=== PATIENT | male | born 1980 | race Caucasian/White ===

== ENCOUNTER 2021-08-23 17:59 | Emergency (ER) | payer SELFPAY ==
[~2021-08-23] VITALS: Ht 180.3 cm; Wt 77.1 kg
[2021-08-23 18:08] VITALS: BP 138/89
--- NOTE | 2021-08-23 18:14 | PHYS DOC ---
Adult General Chief Complaint Chief Complaint: HAND PROBLEM HPI HPI Patient is a 41-year-old male who presents with right hand pain after punching a wall earlier in the day. Having pain, 4 out of 10, dull and achy in nature. Denies any other injuries. Did not take any medications. Review of Systems Review of Systems Review of systems otherwise unremarkable except noted in HPI Allergies Allergies Allergies Coded Allergies Type Severity Reaction Last Updated Verified No Known Drug Allergies 08/23/21 No Physical Exam Physical Exam Constitutional: Well developed, well nourished, no acute distress, non-toxic appearance. [] Skin: Warm, dry, no erythema, no rash. [] Extremities: Neurovascular exam intact, small abrasions on knuckles, mild t enderness and mild swelling with no change in range of motion second MCP and surrounding area, mild deformity/bump on palmar aspect just proximal to the second MCP Neurologic: Alert and oriented X 3, no focal deficits noted. [] Psychologic: Affect normal, judgement normal, mood normal. [] EKG EKG [] Radiology/Procedures Radiology/Procedures [] Heart Score C/O Chest Pain: No Risk Factors: Risk Factors: DM, Current or recent (<one month) smoker, HTN, HLP, family history of CAD, obesity. Risk Scores: Risk Factors: DM, Current or recent (<one month) smoker, HTN, HLP, family history of CAD, obesity. Course & Med Decision Making Course & Med Decision Making Patient is a 41-year-old male who presents with right hand pain after punching a wall Vital signs not concerning. Physical exam noted above. Given pain medicine. Given ice. Imaging with a distal first metacarpal fracture, displaced and angulated. Cleaned area well with alcohol. Given 10 mils of 2% lidocaine as a digital block and hematoma block. Reduced. Splinted. Discussed all findings with patient. Advised on symptom management at home. Advised to follow-up with primary care as needed. Gave return precautions to the ED. Patient grateful, verbalized understanding and agreed with plan of discharge. [] Dragon Disclaimer Dragon Disclaimer This electronic medical record was generated, in whole or in part, using a voice recognition dictation system. Departure Departure: Impression: Primary Impression: Metacarpal bone fracture Disposition: HOME / SELF CARE / HOMELESS Condition: STABLE Referrals: PCP,ADWOA (PCP) TANJA MASTERS MD Patient Instructions: Hand Fracture, Metacarpals, RICE - Routine Care for Injuries Additional Instructions: Thank you for coming into the emergency department tonight and allowing us to take care of you. Please read the attached information carefully to go over things we discussed. You can continue ice, ibuprofen and Tylenol as needed. Please follow-up with your primary care physician to update on your ED visit and set up a follow-up as needed. Please come back with new or concerning symptoms as discussed. Because of your break, as we discussed you need to see an orthopedic doctor in follow-up. Please call the [facility] orthopedic group first thing in the morning at [phone] to set up a follow-up appointment this week for reevaluation and decision on whether you need a splint, cast or surgery. Please also follow-up with your primary care physician to update on your ED visit. MIGUEL ÁNGEL LUO MD Aug 23, 2021 18:14
[2021-08-23] MEDS: IBUPROFEN 600 MG TABLET. PO ONE (18:18)
[2021-08-23] MEDS: ACETAMINOPHEN 500 MG TABLET PO ONE (18:19)
[2021-08-23] MEDS: LIDOCAINE 2% 20 ML VIAL. IJ ONE (18:31)
--- NOTE | 2021-08-23 18:46 | RAD ---
EXAMINATION: XR HAND_RIGHT 3 VIEWS CLINICAL HISTORY: Punched a wall, right hand pain and swelling TECHNIQUE: XR HAND_RIGHT 3 VIEWS COMPARISON: None FINDINGS/ IMPRESSION: Transverse fracture through the second metacarpal neck with mild comminution, impaction, and moderate apex dorsal angulation. Second metacarpal head appears to maintain articulation with the proximal ph alangeal base. Surrounding soft tissue swelling. Electronically signed by: Remy Guillen DO (08/23/2021 6:43 PM) EB
--- NOTE | 2021-08-23 22:43 | RAD ---
EXAMINATION: XR HAND_RIGHT 3 VIEWS CLINICAL HISTORY: Second metacarpal fracture status post reduction.. TECHNIQUE: XR HAND_RIGHT 3 VIEWS COMPARISON: 08/23/2021 6:16 PM FINDINGS/ IMPRESSION: Improved alignment of the second metacarpal neck fracture status post interval reduction and placemen t of overlying fiberglass splint. Electronically signed by: Remy Guillen DO (08/23/2021 10:40 PM) EB
== END 2021-08-23 22:48 | disposition home or self-care (01) ==
LOC: ER 17:59
DX: S62.330A Displaced fracture of neck of second metacarpal bone, right hand, initial encounter for closed fracture (principal); W22.01XA Walked into wall, initial encounter; Y93.89 Activity, other specified; Y92.89 Other specified places as the place of occurrence of the external cause; Y99.8 Other external cause status
CPT/HCPCS: 26605; 73130; 99284; J2001

== ENCOUNTER 2021-08-24 16:12 | Emergency (ER) | payer SELFPAY ==
[~2021-08-24] VITALS: Ht 180.3 cm; Wt 86.0 kg
--- NOTE | 2021-08-24 18:08 | PHYS DOC ---
Past History Past Surgical History: No Surgical History (ANDRE WALKER APRN) Alcohol Use: Rarely (ANDRE WALKER APRN) General Adult EDM: Chief Complaint: CAST CHECK HPI: HPI: Patient is a 41-year-old male who presents to the emergency department for increased hand pain. Patient was seen in this emergency department yesterday for a hand fracture and his hand was placed in a splint he was given orthopedic follow-up information. Patient reports that he is now having pain to the other side of his hand proximal to his fifth finger and he is concerned about the bruising. Patient denies any decreased range of motion, decreased sensation, shortness of breath, fevers. (ANDRE WALKER APRN) Review of Systems: Review of Systems: Constitutional: See HPI Musculoskeletal: See HPI Integument: See HPI Neurologic: See HPI (ANDRE WALKER APRN) Allergies: Allergies: Allergies Coded Allergies Type Severity Reaction Last Updated Verified No Known Drug Allergies 08/23/21 No (ANDRE WALKER APRN) Physical Exam: PE: Constitutional: Well developed, well nourished, no acute distress, non-toxic appearance. [] HENT: Normocephalic, atraumatic, bilateral external ears normal, oropharynx moist, no oral exudates, nose normal. [] Eyes: PERRL, EOMI, conjunctiva normal, no discharge. [] Neck: Normal range of motion, no stridor Cardiovascular: Normal peripheral perfusion Lungs & Thorax: Normal work of breathing, no tachypnea Abdomen: Soft and flat Skin: Warm, dry, no erythema, no rash. [] Back: Normal range of motion Extremities: No tenderness, no cyanosis, no clubbing, ROM intact, no edema. [] Right hand: Mild swelling noted to dorsal aspect of right hand with ecchymosis, range of motion intact, neuro intact, warm extremities Neurologic: Alert and oriented X 3, normal motor function, normal sensory function, no focal deficits noted. [] Psychologic: Affect normal, judgement normal, mood normal. [] (ANDRE WALKER APRN) Current Patient Data: Vital Signs: Vital Signs Date Time Temp Pulse Resp B/P (MAP) Pulse Ox O2 Delivery O2 Flow Rate FiO2 08/24/21 16:47 98.2 82 16 132/84 (100) 99 Room Air (ANDRE WALKER APRN) EKG: EKG: [] (ANDRE WALKER APRN) Radiology/Procedures: Radiology/Procedures: [] (ANDRE WALKER APRN) Heart Score: C/O Chest Pain: N/A Risk Factors: Risk Factors: DM, Current or recent (<one month) smoker, HTN, HLP, family history of CAD, obesity. Risk Scores: Score 0 - 3: 2.5% MACE over next 6 weeks - Discharge Home Score 4 - 6: 20.3% MACE over next 6 weeks - Admit for Clinical Observation Score 7 - 10: 72.7% MACE over next 6 weeks - Early Invasive Strategies (ANDRE WALKER APRN) Course & Med Decision Making: Course & Med Decision Making Pertinent Labs and Imaging studies reviewed. (See chart for details) Patient presents to the emergency department for increased hand pain and swelling. I removed the splint and patient was noted to have swelling under her splint as well as ecchymosis. The splint was rewrapped and loosened. Patient has range of motion intact and is neurovascularly intact. Patient does not have any severe swelling. Patient given referral information for orthopedic doctor. I offered patient pain management for his hand pain which she refused saying that he is sober. I discussed with patient all findings and diagnostic testing as well as the need to follow-up with PCP for further evaluation and treatment or return to the ER if any new or worsening symptoms. Strict return precautions were also discussed at length. Patient voiced understanding and agreement with the plan. Patient is hemodynamically stable at the time of disposition. (ANDRE WALKER APRN) Dragon Disclaimer: Dragon Disclaimer: This electronic medical record was generated, in whole or in part, using a voice recognition dictation system. (ANDRE WALKER APRN) Attending Co-Sign The patient was seen and interviewed as well as examined at the bedside. The chart was reviewed. The case was discussed. Agree with the plan of care. (RACHEL GELLER DO) Departure Departure: Impression: Primary Impression: Hand pain Qualified Codes: M79.641 - Pain in right hand Disposition: HOME / SELF CARE / HOMELESS Condition: GOOD Referrals: PCP,NO (PCP) TANJA MURILLO II, MD Patient Instructions: Cast or Splint Care Additional Instructions: You are seen in the emergency department today for hand pain and swelling. You are likely to experience mild swelling and pain as well as bruising. Please monitor for any decreased sensation in your fingers, decreased range of motion, wound or cold fingers. If you develop any of these findings you need to return to the emergency department immediately. Otherwise contact the orthopedic doctor tomorrow morning and set up a follow-up appointment. I discussed with patient all findings and diagnostic testing as well as the need to follow-up with PCP for further evaluation and treatment or return to the ER if any new or worsening symptoms. Strict return precautions were also discussed at length. Patient voiced understanding and agreement with the plan. Patient is hemodynamically stable at the time of disposition. ANDRE WALKER APRN Aug 24, 2021 18:08 RACHEL GELLER DO Aug 26, 2021 09:23
[2021-08-24 18:20] VITALS: BP 120/79
== END 2021-08-24 18:22 | disposition home or self-care (01) ==
LOC: ER 16:12
DX: M79.641 Pain in right hand (principal)
CPT/HCPCS: 99281

== ENCOUNTER 2021-09-06 16:12 | Emergency (ER) | payer SELFPAY ==
[~2021-09-06] VITALS: Ht 180.3 cm; Wt 86.0 kg
[2021-09-06] MEDS ORDERED: IV RINGERS SOLUTION,LACTATED 1,000 ML IV ONE ×2 (16:30→18:00)
[2021-09-06] MEDS ORDERED: ONDANSETRON PF 4 MG/2 ML VIAL. IVP ONE (16:30)
[2021-09-06 16:39] LABS: BASO # 0.1 x10^3/uL (0.0-0.2); BASO % 1 % (0-3); EOS # 0.1 x10^3/uL (0.0-0.7); EOS % 1 % (0-3); HEMATOCRIT 44.4 % (39.0-53.0); HEMOGLOBIN 15.3 g/dL (13.0-17.5); LYMPH # 1.6 x10^3/uL (1.0-4.8); LYMPH % 17 % (24-48); MEAN CORPUSCULAR HEMOGLOBIN 32 pg (25-35); MEAN CORPUSCULAR HGB CONC 35 g/dL (31-37); MEAN CORPUSCULAR VOLUME 92 fL (79-100); MONO # 0.7 x10^3/uL (0.0-1.1); MONO % 8 % (0-9); NEUT # 6.8 x10^3uL (1.8-7.7); NEUT % 74 % (31-73); PLATELET COUNT 269 x10^3/uL (140-400); RED BLOOD COUNT 4.82 x10^6/uL (4.30-5.70); WHITE BLOOD COUNT 9.2 x10^3/uL (4.0-11.0)
[2021-09-06 16:42] LABS: CALCIUM 9.6 mg/dL (8.5-10.1); GFR 82.3
[2021-09-06] MEDS ORDERED: PROCHLORPERAZINE 10 MG/2 ML VIAL. IV ONE (16:45)
[2021-09-06 16:47] LABS: ALBUMIN 4.4 g/dL (3.4-5.0); ALBUMIN/GLOBULIN RATIO 1.2 (1.0-1.7); TOTAL BILIRUBIN 0.5 mg/dL (0.2-1.0)
[2021-09-06 19:01] VITALS: BP 112/74
[2021-09-06] MEDS ORDERED: PROC10TA57 PO (19:05)
[2021-09-06] MEDS ORDERED: ONDA4TAB12 PO (19:05)
--- NOTE | 2021-09-06 19:06 | PHYS DOC ---
Past History Past Medical History: No Pertinent History (CARLOS RUSSELL) Past Surgical History: No Surgical History (CARLOS RUSSELL) Alcohol Use: None Drug Use: Marijuana (CARLOS RUSSELL) General Adult EDM: Chief Complaint: NAUSEA/VOMITING/DIARRHEA HPI: HPI: Patient is a 41 year old male who presents with 3-day history of nausea and vomiting. Patient states that on Monday evening, he began to feel nauseated and had a couple episodes of emesis. He says that since that time, he has been unable to take anything by mouth secondary to his nausea and vomiting. Arrival to the ER, he is retching, but does not actually been able to produce emesis. He reports he smokes marijuana regularly. Patient denies fever, chills, generalized weakness, diarrhea, constipation, hematemesis. (CARLOS RUSSELL) Review of Systems: Review of Systems: ROS negative or noncontributory except as mentioned in HPI. (CARLOS RUSSELL) Current Medications: Current Meds: Current Medications Medications (Trade) Dose Ordered Sig/Jason Start Time Stop Time Status Last Admin Dose Admin Lactated Ringer's 1,000 ml @ 1,000 mls/hr 1X ONCE 09/06/21 18:00 09/06/21 18:59 DC 09/06/21 17:54 1,000 MLS/HR Ondansetron HCl (Zofran) 4 mg 1X ONCE 09/06/21 16:30 09/06/21 16:31 DC 09/06/21 16:30 4 MG Prochlorperazine Edisylate (Compazine) 10 mg 1X ONCE 09/06/21 16:45 09/06/21 16:46 DC 09/06/21 16:45 10 MG (CARLOS RUSSELL) Allergies: Allergies: Allergies Coded Allergies Type Severity Reaction Last Updated Verified No Known Drug Allergies 08/23/21 No (CARLOS RUSSELL) Physical Exam: PE: Constitutional: Well developed, well nourished, no acute distress, non-toxic appearance, slightly disheveled, appears fatigued. HENT: Normocephalic, atraumatic, bilateral external ears normal, oropharynx moist, markedly poor dentition, nose normal. Eyes: EOMI, conjunctiva normal, no discharge. Neck: Normal range of motion, no stridor. Skin: Warm, dry, no erythema, no rash. Extremities: No cyanosis, no clubbing, ROM intact, no edema, no obvious deformities. Neurologic: Alert and oriented x4, motor and sensory function grossly intact, no focal deficits noted. Psychiatric: Affect appropriate, fair judgment, mood "sick." (CARLOS RUSSELL) Current Patient Data: Labs: Laboratory Tests Test 09/06/21 16:17 09/06/21 19:10 White Blood Count 9.2 x10^3/uL (4.0-11.0) Red Blood Count 4.82 x10^6/uL (4.30-5.70) Hemoglobin 15.3 g/dL (13.0-17.5) Hematocrit 44.4 % (39.0-53.0) Mean Corpuscular Volume 92 fL (79-100) Mean Corpuscular Hemoglobin 32 pg (25-35) Mean Corpuscular Hemoglobin Concent 35 g/dL (31-37) Red Cell Distribution Width 14.0 % (11.5-14.5) Platelet Count 269 x10^3/uL (140-400) Neutrophils (%) (Auto) 74 % (31-73) Lymphocytes (%) (Auto) 17 % (24-48) Monocytes (%) (Auto) 8 % (0-9) Eosinophils (%) (Auto) 1 % (0-3) Basophils (%) (Auto) 1 % (0-3) Neutrophils # (Auto) 6.8 x10^3uL (1.8-7.7) Lymphocytes # (Auto) 1.6 x10^3/uL (1.0-4.8) Monocytes # (Auto) 0.7 x10^3/uL (0.0-1.1) Eosinophils # (Auto) 0.1 x10^3/uL (0.0-0.7) Basophils # (Auto) 0.1 x10^3/uL (0.0-0.2) Sodium Level 137 mmol/L (136-145) Potassium Level 4.0 mmol/L (3.5-5.1) Chloride Level 100 mmol/L (98-107) Carbon Dioxide Level 24 mmol/L (21-32) Anion Gap 13 (6-14) Blood Urea Nitrogen 12 mg/dL (8-26) Creatinine 1.0 mg/dL (0.7-1.3) Estimated GFR (Cockcroft-Gault) 82.3 BUN/Creatinine Ratio 12 (6-20) Glucose Level 104 mg/dL (70-99) Calcium Level 9.6 mg/dL (8.5-10.1) Total Bilirubin 0.5 mg/dL (0.2-1.0) Aspartate Amino Transf (AST/SGOT) 18 U/L (15-37) Alanine Aminotransferase (ALT/SGPT) 33 U/L (16-63) Alkaline Phosphatase 59 U/L (46-116) Total Protein 8.0 g/dL (6.4-8.2) Albumin 4.4 g/dL (3.4-5.0) Albumin/Globulin Ratio 1.2 (1.0-1.7) Lipase 197 U/L (73-393) Urine Collection Type Unknown Urine Color Sarah Urine Clarity Cloudy Urine pH 7.5 Urine Specific Gillham 1.020 Urine Protein Trace (NEG-TRACE) Urine Glucose (UA) Neg mg/dL (NEG) Urine Ketones (Stick) 15 mg/dL (NEG) Urine Blood Neg (NEG) Urine Nitrite Neg (NEG) Urine Bilirubin Neg (NEG) Urine Urobilinogen Dipstick 0.2 mg/dL (0.2 mg/dL) Urine Leukocyte Esterase Neg (NEG) Urine RBC 0 /HPF (0-2) Urine WBC 0 /HPF (0-4) Urine Squamous Epithelial Cells None /LPF Urine Bacteria Many /HPF (0-FEW) Urine Mucus Marked /LPF Urine Opiates Screen Neg (NEG) Urine Methadone Screen Neg (NEG) Urine Barbiturates Neg (NEG) Urine Phencyclidine Screen Neg (NEG) Urine Amphetamine/Methamphetamine Neg (NEG) Urine Benzodiazepines Screen Neg (NEG) Urine Cocaine Screen Neg (NEG) Urine Cannabinoids Screen Pos (NEG) Urine Ethyl Alcohol Neg (NEG) Vital Signs: Vital Signs Date Time Temp Pulse Resp B/P (MAP) Pulse Ox O2 Delivery O2 Flow Rate FiO2 09/06/21 19:01 61 18 112/74 (87) 100 Room Air 09/06/21 16:16 97.9 (CARLOS RUSSELL) Radiology/Procedures: Radiology/Procedures: [] (CARLOS RUSSELL) Heart Score: C/O Chest Pain: No (CARLOS RUSSELL) Course & Med Decision Making: Course & Med Decision Making Pertinent Labs and Imaging studies reviewed. (See chart for details) Patient is a 41-year-old male who admits to chronic marijuana use who presents with intractable nausea and vomiting. Patient appears to have cannabinoid hyperemesis syndrome. Work-up today will include labs, urinalysis, urine drug screen. Patient provided with IV Zofran and IV fluids. Patient still retching after Zofran administration. Compazine was added IV. Patient seems to be doing much better after Compazine administration, though he reports continuing to feel "queasy." Discussed liquid diet and to advance as tolerated to BRAT and then regular. Patient will be provided with prescriptions for Zofran as well as Compazine. Patient advised to discontinue use of cannabinoids to avoid future episodes. Though patient admits he will not likely stop smoking marijuana, he verbalizes understanding. He and his family member at bedside understand are agreeable to discharge plan. (CARLOS RUSSELL) Course & Med Decision Making Did not see or evaluate patient. Did not discuss patient with ENGINE CLEANER. Generally agree with ENGINE CLEANER's work-up and disposition per note (MIGUEL ÁNGEL LUO MD) Dragon Disclaimer: Dragon Disclaimer: This electronic medical record was generated, in whole or in part, using a voice recognition dictation system. (CARLOS RUSSELL) Departure Departure: Impression: Primary Impression: Cannabinoid hyperemesis syndrome Additional Impression: Nausea & vomiting Qualified Codes: R11.2 - Nausea with vomiting, unspecified Disposition: HOME / SELF CARE / HOMELESS Condition: IMPROVED Referrals: PCP,ADWOA (PCP) Patient Instructions: Nausea and Vomiting, [id number] Additional Instructions: EMERGENCY DEPARTMENT GENERAL DISCHARGE INSTRUCTIONS Thank you for coming to [facility] (ED) today and trusting us with you care. We trust that you had a positive experience in our Emergency Department. If you wish to speak to the department management, you may call the director at [phone]. YOUR FOLLOW UP INSTRUCTIONS ARE FOLLOWS: 1. Follow up with your primary care doctor. If you do not have a primary doctor, please ask for a resource list of physicians or clinics that may be able to assist you with follow up care. 2. The emergency provider has interpreted your imaging studies, if any were ordered. The radiology crime scene specialist also reviewed them. If there is a change in the findings, you will be notified in 48 hours when at all possible. 3. If a lab test or culture has been done, your results will be reviewed and you will be notified if you need a change in treatment. 4. Follow instructions verbalized to you and refer to the printouts if needed. ADDITIONAL INSTRUCTIONS AND INFORMATION: 1. Your care today has been supervised by a physician who is specially trained in emergency care. Many problems require more than one evaluation for a complete diagnosis and treatment. We recommend that you schedule your follow up appointment as recommended to ensure complete treatment of you illness or injury. If you are unable to obtain follow up care and continue to have a problem, or if your condition worsens, we recommend that you return to the ED. 2. We are not able to safely determine your condition over the phone nor are we able to give sound medical advice over the phone. For these safety reasons, if you call for medical advice we will ask you to come to the ED for further evaluation. 3. If you have any questions regarding these discharge instructions please call the ED at [phone]. SAFETY INFORMATION: In the interest of safety, wellness, and injury prevention; we encourage you to wear your seat belt, if you smoke; quite smoking, and we encourage family to use a protective helmet for bicycling and other sporting events that present an increased risk for head injury. IF YOUR SYMPTOMS WORSEN OR NEW SYMPTOMS DEVELOP, OR YOU HAVE CONCERNS ABOUT YOUR CONDITION; OR IF YOUR CONDITION WORSENS WHILE YOU ARE WAITING FOR YOUR FOLLOW UP APPOINTMENT; EITHER CONTACT YOUR PRIMARY CARE DOCTOR, THE PHYSICIAN WHOSE NAME AND NUMBER YOU WERE GIVEN, OR RETURN TO THE ED IMMEDIATELY. Scripts Ondansetron (ONDANSETRON ODT) 4 Mg Tab.rapdis 1 TAB PO PRN Q6-8HRS for n/v, #20 TAB Prov: CARLOS RUSSELL 09/06/21 Prochlorperazine Maleate (Compazine) 10 Mg Tablet 1 TAB PO Q6HRS for n/v, #20 TAB 0 Refills Prov: CARLOS RUSSELL 09/06/21 CARLOS RUSSELL Sep 06, 2021 19:06 MIGUEL ÁNGEL LUO MD Sep 06, 2021 21:28
[2021-09-06 20:17] LABS: BARBITURATES NEG (NEG); BENZODIAZEPINES NEG (NEG); CANNABINOIDS POS (NEG); COCAINE NEG (NEG); METHADONE NEG (NEG); OPIATES NEG (NEG); PHENCYCLIDINE NEG (NEG)
[2021-09-06 20:20] LABS: CLARITY,URINE CLOUDY; COLOR,URINE AMBER; GLUCOSE,URINE NEG (NEG)
[2021-09-06 20:21] LABS: AMPHETAMINE/METHAMPHETAMINE NEG (NEG); BACTERIA,URINE MANY /HPF (0-FEW); NITRITE,URINE NEG (NEG); RBC,URINE 0 /HPF (0-2); UROBILINOGEN,URINE 0.2 mg/dL (0.2 mg/dL); WBC,URINE 0 /HPF (0-4)
== END 2021-09-06 19:15 | disposition home or self-care (01) ==
LOC: ER 16:12
DX: R11.2 Nausea with vomiting, unspecified (principal); F12.10 Cannabis abuse, uncomplicated
CPT/HCPCS: 36415; 80053; 80307; 81001; 83690; 85025; 87086; 96361; 96374; 96375; 99284; J0780; J2405; J7120